=== PATIENT | female | born 1950 | race Caucasian/White ===

== ENCOUNTER → 2022-07-06 | Outpatient (CLI) | payer MEDICARE ==
[~2022-07-06] MED LIST: ASPI-1005 PO; ATOR20TA65 PO; FURO40TA7 PO; METO25 PO; Nitroglycerin 0.4MG Sl Tab SL; POTA-192 PO; TICA90TA PO
== END | disposition home or self-care (01) ==
LOC: SHCH 08:17
PROVIDERS: ATTEND Student in an Organized Health Care Education/Training Program
DX: I11.0 Hypertensive heart disease with heart failure (principal); I50.9 Heart failure, unspecified; I34.0 Nonrheumatic mitral (valve) insufficiency; E78.5 Hyperlipidemia, unspecified
CPT/HCPCS: 36415; 80053; 80061; 84443; 85025; 93306

== ENCOUNTER 2022-07-25 08:34 | Emergency (ER) | payer MEDICARE ==
[~2022-07-25] VITALS: Ht 152.4 cm; Wt 63.5 kg
[2022-07-25 10:48] VITALS: BP 120/49
== END 2022-07-25 11:01 | disposition home or self-care (01) ==
LOC: EDH 08:34
DX: S52.501A Unspecified fracture of the lower end of right radius, initial encounter for closed fracture (principal); I25.2 Old myocardial infarction; Z79.82 Long term (current) use of aspirin; W18.39XA Other fall on same level, initial encounter; Y93.89 Activity, other specified; Y92.89 Other specified places as the place of occurrence of the external cause; Y99.8 Other external cause status
CPT/HCPCS: 29125; 73090; 73120

== ENCOUNTER → 2022-10-13 | Outpatient (CLI) | payer MEDICARE ==
[2022-10-13 12:18] LABS: CHOLESTEROL 150 mg/dL (<200); HDL CHOLESTEROL 64 mg/dL (35-85); LDL DIRECT 71 mg/dL (0-99); TRIGLYCERIDES 42 mg/dL (30-200)
== END | disposition home or self-care (01) ==
LOC: LAB 07-12 15:42
PROVIDERS: ATTEND Student in an Organized Health Care Education/Training Program
DX: E78.5 Hyperlipidemia, unspecified (principal)
CPT/HCPCS: 36415; 80061

== ENCOUNTER → 2023-01-24 | Outpatient (CLI) | payer MEDICARE | END | disposition home or self-care (01) | LOC: SHCH 08:39 | PROVIDERS: ATTEND Student in an Organized Health Care Education/Training Program | DX: I08.1 Rheumatic disorders of both mitral and tricuspid valves (principal); Q21.12 Patent foramen ovale; I50.9 Heart failure, unspecified; E78.5 Hyperlipidemia, unspecified; Z98.61 Coronary angioplasty status | CPT/HCPCS: 93306 ==

== ENCOUNTER → 2023-01-24 | Outpatient (CLI) | payer MEDICARE ==
[2023-01-24 12:40] LABS: CHOLESTEROL 207 mg/dL (<200); HDL CHOLESTEROL 73 mg/dL (35-85); LDL DIRECT 127 mg/dL (0-99); TRIGLYCERIDES 82 mg/dL (30-200)
== END | disposition home or self-care (01) ==
LOC: LAB 10:14
PROVIDERS: ATTEND Student in an Organized Health Care Education/Training Program
DX: E78.5 Hyperlipidemia, unspecified (principal)
CPT/HCPCS: 36415; 80061

== ENCOUNTER → 2023-02-01 | Outpatient (CLI) | payer MEDICARE | END | disposition home or self-care (01) | LOC: RAH 13:38 | PROVIDERS: ATTEND Internal Medicine | DX: Z12.31 Encounter for screening mammogram for malignant neoplasm of breast (principal); Z13.820 Encounter for screening for osteoporosis; M81.0 Age-related osteoporosis without current pathological fracture | CPT/HCPCS: 77067; 77080 ==

== ENCOUNTER → 2024-01-30 | Outpatient (CLI) | payer MEDICARE ==
[2024-01-30 12:32] LABS: CHOLESTEROL 218 mg/dL (<200); HDL CHOLESTEROL 58 mg/dL (35-85); LDL DIRECT 151 mg/dL (0-99); TRIGLYCERIDES 63 mg/dL (30-200)
== END | disposition home or self-care (01) ==
LOC: LAB 08:33
PROVIDERS: ATTEND Student in an Organized Health Care Education/Training Program
DX: E78.5 Hyperlipidemia, unspecified (principal)
CPT/HCPCS: 36415; 80061